=== PATIENT | male | born 1980 | race Hispanic/Latino ===

== ENCOUNTER 2018-07-30 19:41 | Emergency (ER) | payer OTHER ==
[2018-07-30 19:42] VITALS: BMI 40.1
[2018-07-30 20:06] VITALS: RESP 18
--- NOTE | 2018-07-30 21:09 | C.PDOC ---
History Of Present Illness 38 y/o male pt presents to the ER by EMS c/o feeling lightheaded, dizziness and nausea. 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 Pt reports when he arrived at [address] the second time, he started feeling the symptoms. Pt has no other associated sx or complaints at this time. Time Seen by Provider: 07/30/18 20:10 Chief Complaint (Nursing): Medical Clearance History Per: Patient History/Exam Limitations: no limitations Onset/Duration Of Symptoms: Hrs Current Symptoms Are (Timing): Still Present Past Medical History Reviewed: Historical Data, Nursing Documentation, Vital Signs Vital Signs: Last Vital Signs Temp 98.1 F 07/30/18 19:55 Pulse 63 07/30/18 19:55 Resp 18 07/30/18 19:55 BP 113/74 07/30/18 19:55 Pulse Ox 97 07/30/18 19:55 - Medical History PMH: HTN, Hypercholesterolemia Family History: States: No Known Family Hx - Social History Hx Alcohol Use: No Hx Substance Use: No Review Of Systems Except As Marked, All Systems Reviewed And Found Negative. Cardiovascular: Positive for: Light Headedness Gastrointestinal: Positive for: Nausea Neurological: Positive for: Dizziness Physical Exam - Physical Exam Appears: Non-toxic, No Acute Distress Skin: Warm, Dry Head: Atraumatic, Normacephalic Eye(s): bilateral: PERRL, EOMI Nose: Normal Oral Mucosa: Moist Throat: Normal, No Erythema, No Exudate Chest: Symmetrical Cardiovascular: Rhythm Regular Respiratory: Normal Breath Sounds Gastrointestinal/Abdominal: Soft, No Tenderness Neurological/Psych: Oriented x3, Normal Speech, Normal Cognition, Normal Motor, Normal Sensation ED Course And Treatment O2 Sat by Pulse Oximetry: 97 (RA) Pulse Ox Interpretation: Normal Progress Note: Plans: -- tylenol. -- Zofran. Pt observed , Carboxyhgb level is 2- normal. Pt remains stable in ED , breathing well on RA, tolerating PO. Pt is to follow up with PMD. Return precautions were discussed Disposition Counseled Patient/Family Regarding: Diagnosis, Need For Followup - Disposition Referrals: Your PCP, Private [Other] Disposition: HOME/ ROUTINE Disposition Time: 21:05 Condition: STABLE Additional Instructions: Increase fluids Tylenol or advil for pain Return to ER if worse Forms: [facility] (Gambian), General Discharge Instructions - Clinical Impression Clinical Impression: Medical assessment, Exposure to chemical inhalation - PA / LEGAL SECRETARY RECEPTIONIST / Resident Statement MD/ has reviewed & agrees with the documentation as recorded. - Scribe Statement The provider has reviewed the documentation as recorded by the Scribe Chika Smith All medical record entries made by the Scribe were at my direction and person ally dictated by me. I have reviewed the chart and agree that the record accurately reflects my personal performance of the history, physical exam, medical decision making, and the department course for this patient. I have also personally directed, reviewed, and agree with the discharge instructions and disposition.
[2018-07-30 21:23] VITALS: BP 130/79; PULSE 62; TEMP 98.5
[2018-07-30 21:29] VITALS: O2SAT 97
== END 2018-07-30 21:23 | disposition home or self-care (01) ==
LOC: C.ER 19:41
DX: Z77.098 Contact with and (suspected) exposure to other hazardous, chiefly nonmedicinal, chemicals (principal)